=== PATIENT | male | born 1985 | race Two or more races ===

== ENCOUNTER 2020-10-19 17:25 | Inpatient (IN) | payer MEDICAID ==
[~2020-10-19] VITALS: Ht 182.9 cm; Wt 82.1 kg
[2020-10-19 18:30] VITALS: BP 108/72
[2020-10-19 20:00] VITALS: BP 126/81
[2020-10-19] MEDS ORDERED: ACETAMINOPHEN 650MG/20.3ML UDC PO PRN (20:45)
[2020-10-19] MEDS ORDERED: MAGNESIUM HYDROXIDE 400MG/5ML 30ML UDC PO PRN (21:00)
[2020-10-19] MEDS ORDERED: ONDANSETRON HCL 4MG TABLET PO PRN (21:00)
[2020-10-19] MEDS ORDERED: BISACODYL 10MG SUPP PR PRN (21:00)
[2020-10-19] MEDS ORDERED: IPRATROPIUM/ALBUTEROL 0.5-3(2.5)MG/3ML NEB HHN PRN ×2 (21:00)
[2020-10-19] MEDS ORDERED: NA PHOS,M-B/NA PHOS,DI-BA ENEMA 118ML PR PRN (21:00)
[2020-10-19] MEDS ORDERED: ACETAMINOPHEN 650MG SUPP PR PRN (21:15)
[2020-10-19] MEDS: PHENOBARBITAL 30 MG TABLET PO SCH (22:18)
[2020-10-19] MEDS: TRAZODONE HCL 50MG TABLET PO SCH (22:18)
[2020-10-19] MEDS: OLANZAPINE 10MG TABLET PO SCH (22:19)
[2020-10-20 07:42] VITALS: BP 93/49
[2020-10-20] MEDS: PHENOBARBITAL 30 MG TABLET PO SCH ×2 (10:06→22:03)
[2020-10-20] MEDS: MULTIVITAMINS,THER W-MINERALS TABLET PO SCH (10:06)
[2020-10-20] MEDS: HYDROCORTISONE 10MG TABLET PO SCH (10:08)
[2020-10-20] MEDS: DOCUSATE SODIUM 100MG CAPSULE PO SCH (10:08)
[2020-10-20] MEDS: THIAMINE HCL 100MG TABLET PO SCH (10:08)
[2020-10-20] MEDS: OLANZAPINE 10MG TABLET PO SCH ×2 (10:08→22:02)
[2020-10-20] MEDS: FOLIC ACID 1MG TABLET PO SCH (10:08)
[2020-10-20 10:23] LABS: BASOPHILS % 0.8 % (0.0-2.0); EOSINOPHILS % 7.2 % (0.0-5.0); HEMATOCRIT. 37.3 % (42.0-52.0); HEMOGLOBIN. 12.6 g/dL (14.0-18.0); LYMPHOCYTES % 24.1 % (20.0-50.0); MEAN CORPUSCULAR HEMOGLOBIN 30.5 pg (28.0-32.0); MEAN CORPUSCULAR VOLUME 90.2 fL (80.0-94.0); MEAN PLATELET VOLUME 8.5 fl (7.4-10.4); MONOCYTES % 9.8 % (2.0-8.0); NEUTROPHILS % 58.1 % (40.0-76.0); PLATELET 271 x1000/uL (130-400); RED BLOOD CELL COUNT 4.14 mill/uL (4.7-6.1); RED CELL DISTRIBUTION WIDTH 13.7 % (11.6-14.6)
[2020-10-20 10:27] LABS: CHLORIDE 107 mEq/L (98-107)
[2020-10-20] MEDS: ENOXAPARIN 40MG/0.4ML SYR SUBCUT SCH (12:33)
[2020-10-20] MEDS ORDERED: HYDROCORTISONE 10MG TABLET PO SCH (13:00)
[2020-10-20 20:00] VITALS: BP 111/74
[2020-10-20] MEDS: TRAZODONE HCL 50MG TABLET PO SCH (22:02)
[2020-10-21 08:00] VITALS: BP 84/45
[2020-10-21] MEDS: HYDROCORTISONE 10MG TABLET PO SCH ×2 (08:59→17:59)
[2020-10-21] MEDS: DOCUSATE SODIUM 100MG CAPSULE PO SCH (08:59)
[2020-10-21] MEDS: ASPIRIN 81MG EC TABLET PO SCH (08:59)
[2020-10-21] MEDS: OLANZAPINE 10MG TABLET PO SCH ×2 (08:59→20:29)
[2020-10-21] MEDS: MULTIVITAMINS,THER W-MINERALS TABLET PO SCH (09:00)
[2020-10-21] MEDS: FOLIC ACID 1MG TABLET PO SCH (09:00)
[2020-10-21] MEDS: PHENOBARBITAL 30 MG TABLET PO SCH ×2 (09:00→20:29)
[2020-10-21] MEDS: THIAMINE HCL 100MG TABLET PO SCH (09:03)
[2020-10-21] MEDS: ENOXAPARIN 40MG/0.4ML SYR SUBCUT SCH (09:05)
[2020-10-21 09:58] LABS: BASOPHILS % 1.1 % (0.0-2.0); EOSINOPHILS % 8.6 % (0.0-5.0); HEMATOCRIT. 40.2 % (42.0-52.0); HEMOGLOBIN. 13.5 g/dL (14.0-18.0); LYMPHOCYTES % 30.1 % (20.0-50.0); MEAN CORPUSCULAR HEMOGLOBIN 30.6 pg (28.0-32.0); MEAN CORPUSCULAR VOLUME 90.9 fL (80.0-94.0); MEAN PLATELET VOLUME 8.5 fl (7.4-10.4); MONOCYTES % 10.4 % (2.0-8.0); NEUTROPHILS % 49.8 % (40.0-76.0); PLATELET 282 x1000/uL (130-400); RED BLOOD CELL COUNT 4.42 mill/uL (4.7-6.1); RED CELL DISTRIBUTION WIDTH 13.7 % (11.6-14.6)
[2020-10-21 10:08] LABS: CHLORIDE 107 mEq/L (98-107)
[2020-10-21 10:12] LABS: ETHANOL BLOOD < 10 mg/dL
[2020-10-21 10:17] LABS: PHENOBARBITAL 12.6 ug/mL (15.0-40.0)
[2020-10-21 10:18] LABS: T4 FREE 1.13 ng/dL (0.76-1.46)
[2020-10-21 11:00] LABS: FOLIC ACID (FOLATE) SERUM > 20.00 ng/mL (>5.38)
[2020-10-21 11:10] LABS: VITAMIN B12 SERUM 563 pg/mL (211-911)
[2020-10-21 16:45] LABS: *AMPHETAMINES SCREEN URINE NEGATIVE (NEGATIVE); *BARBITURATES SCREEN URINE PRESUMTIVE POSITIVE (NEGATIVE); *BENZODIAZEPINES SCREEN URINE NEGATIVE (NEGATIVE); *COCAINE SCREEN URINE NEGATIVE (NEGATIVE); METHADONE URINE SCREEN NEGATIVE (NEGATIVE); OPIATES URINE SCREEN NEGATIVE (NEGATIVE)
[2020-10-21 16:46] LABS: CANNABINOID URINE SCREEN NEGATIVE (NEGATIVE); PHENCYCLIDINE URINE SCREEN NEGATIVE (NEGATIVE)
[2020-10-21 20:00] VITALS: BP 121/78
[2020-10-21] MEDS: TRAZODONE HCL 50MG TABLET PO SCH (20:29)
[2020-10-22 06:20] VITALS: BP 108/68
[2020-10-22 08:00] VITALS: BP 118/76
[2020-10-22] MEDS: DOCUSATE SODIUM 100MG CAPSULE PO SCH (09:00)
[2020-10-22] MEDS: HYDROCORTISONE 10MG TABLET PO SCH ×2 (09:27→17:42)
[2020-10-22] MEDS: MULTIVITAMINS,THER W-MINERALS TABLET PO SCH (09:28)
[2020-10-22] MEDS: PHENOBARBITAL 30 MG TABLET PO SCH ×2 (09:28→22:06)
[2020-10-22] MEDS: OLANZAPINE 10MG TABLET PO SCH ×2 (09:28→22:05)
[2020-10-22] MEDS: ASPIRIN 81MG EC TABLET PO SCH (09:28)
[2020-10-22] MEDS: FOLIC ACID 1MG TABLET PO SCH (09:28)
[2020-10-22] MEDS: THIAMINE HCL 100MG TABLET PO SCH (09:28)
[2020-10-22] MEDS: ENOXAPARIN 40MG/0.4ML SYR SUBCUT SCH (09:29)
[2020-10-22] MEDS: MAGNESIUM OXIDE 400MG TABLET PO SCH (09:32)
[2020-10-22 21:13] VITALS: BP 120/73
[2020-10-22] MEDS: TRAZODONE HCL 50MG TABLET PO SCH (22:05)
[2020-10-23 07:03] LABS: BASOPHILS % 1.3 % (0.0-2.0); EOSINOPHILS % 11.6 % (0.0-5.0); HEMATOCRIT. 34.8 % (42.0-52.0); HEMOGLOBIN. 11.8 g/dL (14.0-18.0); LYMPHOCYTES % 34.6 % (20.0-50.0); MEAN CORPUSCULAR HEMOGLOBIN 30.5 pg (28.0-32.0); MEAN CORPUSCULAR VOLUME 89.7 fL (80.0-94.0); MEAN PLATELET VOLUME 8.5 fl (7.4-10.4); NEUTROPHILS % 39.5 % (40.0-76.0); PLATELET 251 x1000/uL (130-400); RED BLOOD CELL COUNT 3.88 mill/uL (4.7-6.1); RED CELL DISTRIBUTION WIDTH 13.7 % (11.6-14.6)
[2020-10-23 07:11] LABS: CHLORIDE 109 mEq/L (98-107)
[2020-10-23 08:00] VITALS: BP 118/67
[2020-10-23] MEDS: DOCUSATE SODIUM 100MG CAPSULE PO SCH (08:53)
[2020-10-23] MEDS: OLANZAPINE 10MG TABLET PO SCH ×2 (08:53→21:49)
[2020-10-23] MEDS: MAGNESIUM OXIDE 400MG TABLET PO SCH (08:53)
[2020-10-23] MEDS: ASPIRIN 81MG EC TABLET PO SCH (08:53)
[2020-10-23] MEDS: MULTIVITAMINS,THER W-MINERALS TABLET PO SCH (08:54)
[2020-10-23] MEDS: HYDROCORTISONE 10MG TABLET PO SCH ×2 (08:54→16:46)
[2020-10-23] MEDS: THIAMINE HCL 100MG TABLET PO SCH (08:54)
[2020-10-23] MEDS: PHENOBARBITAL 30 MG TABLET PO SCH (08:54)
[2020-10-23] MEDS: FOLIC ACID 1MG TABLET PO SCH (08:54)
[2020-10-23] MEDS: ENOXAPARIN 40MG/0.4ML SYR SUBCUT SCH (08:55)
[2020-10-23 20:00] VITALS: BP 117/83
[2020-10-23] MEDS: PHENOBARBITAL 60MG TABLET PO SCH (21:48)
[2020-10-23] MEDS: TRAZODONE HCL 50MG TABLET PO SCH (21:50)
[2020-10-24] MEDS ORDERED: TRAZ-251 PO (00:43)
[2020-10-24] MEDS ORDERED: HYDR-4379 PO ×2 (00:43)
[2020-10-24] MEDS ORDERED: OLAN10TA19 PO (00:43)
[2020-10-24] MEDS ORDERED: PHEN64.8 PO (00:43)
[2020-10-24 07:40] VITALS: BP 114/71
[2020-10-24] MEDS: PHENOBARBITAL 60MG TABLET PO SCH (08:05)
[2020-10-24] MEDS: FOLIC ACID 1MG TABLET PO SCH (08:05)
[2020-10-24] MEDS: MAGNESIUM OXIDE 400MG TABLET PO SCH (08:05)
[2020-10-24] MEDS: MULTIVITAMINS,THER W-MINERALS TABLET PO SCH (08:06)
[2020-10-24] MEDS: DOCUSATE SODIUM 100MG CAPSULE PO SCH (08:06)
[2020-10-24] MEDS: OLANZAPINE 10MG TABLET PO SCH (08:06)
[2020-10-24] MEDS: ASPIRIN 81MG EC TABLET PO SCH (08:06)
[2020-10-24] MEDS: HYDROCORTISONE 10MG TABLET PO SCH (08:06)
[2020-10-24] MEDS: ENOXAPARIN 40MG/0.4ML SYR SUBCUT SCH (08:07)
[2020-10-24] MEDS: THIAMINE HCL 100MG TABLET PO SCH (08:07)
[2020-10-24 12:06] VITALS: BP 114/71
[2020-10-26 04:07] LABS: 25-HYDROXY VITAMIN D3 33 ng/mL (.)
== END 2020-10-24 12:50 | disposition home health service (06) | DRG 52 ==
PROVIDERS: ADMIT Physical Medicine & Rehabilitation Spinal Cord Injury Medicine; ATTEND Family Medicine Adult Medicine
DX: G92 Toxic encephalopathy (principal); E27.49 Other adrenocortical insufficiency; G40.909 Epilepsy, unspecified, not intractable, without status epilepticus; D64.9 Anemia, unspecified; E16.2 Hypoglycemia, unspecified; E44.1 Mild protein-calorie malnutrition; F10.10 Alcohol abuse, uncomplicated; F12.10 Cannabis abuse, uncomplicated; F14.10 Cocaine abuse, uncomplicated; F20.9 Schizophrenia, unspecified; F31.9 Bipolar disorder, unspecified; E83.42 Hypomagnesemia; F41.9 Anxiety disorder, unspecified; R26.9 Unspecified abnormalities of gait and mobility; R53.81 Other malaise; Z71.51 Drug abuse counseling and surveillance of drug abuser; Z82.49 Family history of ischemic heart disease and other diseases of the circulatory system; Z87.820 Personal history of traumatic brain injury; Z91.5 Personal history of self-harm; Z87.828 Personal history of other (healed) physical injury and trauma; Z68.24 Body mass index [BMI] 24.0-24.9, adult
CPT/HCPCS: 36415; 70551; 80048; 80053; 80184; 80305; 80320; 82140; 82306; 82607; 82746; 83036; 83735; 84134; 84439; 84443; 84481; 84484; 85025; 92523; 93005; 93306; 93970; 97110; 97112; 97116; 97162; 97166; 97530; 97535; J1650; G0480